=== PATIENT | female | born 1965 | race Hispanic/Latino ===

== ENCOUNTER 2017-01-03 10:50 | Emergency (ER) | payer SELFPAY ==
--- NOTE | 2017-01-03 11:14 | C.PDOC ---
History Of Present Illness 51 yo female, BIBA, with c/o left rib pain after fall and injury just prior to arrival. Patient states she was sweeping her hallway, felt dizzy, missed her step and struck her left chest on a railing. Denies head injury, LOC, headache, nausea, vomiting, SOB, new weakness, or new numbness. Patient states she is no longer dizzy and is unsure what caused the dizziness. Notes pain worsens with deep inspiration and movement. Time Seen by Provider: 01/03/17 10:54 Chief Complaint (Nursing): Dizziness/Lightheaded History Per: Patient History/Exam Limitations: no limitations Onset/Duration Of Symptoms: Hrs Current Symptoms Are (Timing): Still Present Activity At Onset Of Symptoms: Standing Seizure Or Post-ictal Symptoms: None Fall Associated With With Symptoms: Yes, Positive Injury Recent travel outside of the [place]: No Past Medical History Reviewed: Historical Data, Nursing Documentation, Vital Signs Vital Signs: Last Vital Signs Temp 97.5 F L 01/03/17 11:00 Pulse 86 01/03/17 12:44 Resp 20 01/03/17 12:44 BP 151/95 H 01/03/17 12:44 Pulse Ox 99 01/03/17 12:44 - Medical History PMH: Asthma, Pneumonia Family History: States: Unknown Family Hx - Social History Hx Tobacco Use: No Hx Alcohol Use: No Hx Substance Use: No - Immunization History Hx Tetanus Toxoid Vaccination: No Hx Influenza Vaccination: No Hx Pneumococcal Vaccination: No Review Of Systems Except As Marked, All Systems Reviewed And Found Negative. Constitutional: Negative for: Fever, Chills Cardiovascular: Negative for: Palpitations Respiratory: Negative for: Cough, Shortness of Breath, Wheezing Gastrointestinal: Negative for: Nausea, Vomiting, Abdominal Pain Musculoskeletal: Positive for: Other (left sided lower rib pain). Negative for : Neck Pain, Back Pain Skin: Negative for: Rash, Bruising Neurological: Negative for: Weakness, Numbness, Headache, Dizziness (resolved) Physical Exam - Physical Exam Appears: Non-toxic, No Acute Distress Skin: Normal Color, Warm, Dry, No Diaphoretic, No Rash Head: Atraumatic, Normacephalic Eye(s): bilateral: Normal Inspection, PERRL, EOMI Nose: Normal Oral Mucosa: Moist Neck: Normal, Normal ROM, No Midline Cervical Tenderness, No Paracervical Tenderness, Supple Chest: Symmetrical, Tenderness (left lateral lower rib area), No Ecchymosis, No Subcutaneous Emphysema, Other (no swelling) Cardiovascular: Rhythm Regular, No Murmur Respiratory: Normal Breath Sounds, No Rales, No Rhonchi, No Wheezing Gastrointestinal/Abdominal: Soft, No Tenderness, No Guarding, No Rebound Back: Normal Inspection, No Vertebral Tenderness, No Paraspinal Tenderness Extremity: Normal ROM, Capillary Refill (< 2 sec. ), No Deformity, No Swelling Neurological/Psych: Oriented x3, Normal Speech, Normal Cranial Nerves, No Cerebellar Signs, Normal Motor, Normal Sensation Gait: Steady ED Course And Treatment - Laboratory Results Result Diagrams: 01/03/17 11:39 01/03/17 11:39 Lab Interpretation: No Acute Changes O2 Sat by Pulse Oximetry: 98 (RA) Pulse Ox Interpretation: Normal Medical Decision Making Medical Decision Making: Plan: * Ribs/chest x-ray * Bloodwork * Ultram * Reassess Progress: Labs reviewed and unremarkable X-ray reviewed by me and read by radiologist showing normal chest and no rib fracture. On reevaluation, patient resting comfortably, and is in no acute distress. She remains alert and oriented, normal neuro exam. Vital signs stable. Advised follow up with PMD. Disposition Counseled Patient/Family Regarding: Diagnosis, Need For Followup, Rx Given - Disposition Disposition: HOME/ ROUTINE Disposition Time: 12:29 Condition: STABLE Additional Instructions: Your Xray was normal no rib fracture Please take pain medication as needed Follow up with your primary medical doctor or clinic in 2-5 days for further evaluation. Instructions: Rib Contusion (ED) - POA Present On Arrival: None - Clinical Impression Clinical Impression: Spell of dizziness, Contusion of rib - PA / DIRECTOR SALES / Resident Statement MD/DO has reviewed & agrees with the documentation as recorded. - Scribe Statement The provider has reviewed the documentation as recorded by the Felice Lancaster All medical record entries made by the Felice were at my direction and personally dictated by me. I have reviewed the chart and agree that the record accurately reflects my personal performance of the history, physical exam, medical decision making, and the department course for this patient. I have also personally directed, reviewed, and agree with the discharge instructions and disposition.
[2017-01-03 11:24] VITALS: TEMP 97.5
[2017-01-03 11:54] LABS: BASO # 0.1 K/uL (0.0-0.2); BASO % 0.7 % (0.0-2.0); EOS # 0.1 K/uL (0.0-0.7); EOS % 0.6 % (0.0-4.0); HEMATOCRIT 42.7 % (34.0-47.0); LYMPH % 18.2 % (20.0-40.0); MEAN CELL VOLUME 84.2 fL (81.0-99.0); MEAN CORPUSCULAR HEMOGLOBIN 27.7 pg (27.0-31.0); MEAN CORPUSCULAR HGB CONC 32.9 g/dL (33.0-37.0); MEAN PLATELET VOLUME 9.1 fL (7.2-11.7); MONO # 0.6 K/uL (0.0-0.8); MONO % 5.8 % (0.0-10.0); RED CELL DISTRIBUTION WIDTH 13.6 % (11.5-14.5); WHITE BLOOD COUNT 11.1 K/uL (4.8-10.8)
[2017-01-03 12:10] LABS: CHLORIDE 107 mmol/L (98-107); POTASSIUM 3.8 mmol/L (3.6-5.2); SODIUM 141 mmol/L (132-148)
[2017-01-03 12:12] LABS: BILIRUBIN,TOTAL 0.7 mg/dL (0.2-1.3); GFR AFRICAN-AMERICAN > 60
[2017-01-03 12:13] LABS: ALB/GLOB RATIO 1.2 (1.0-2.1); ALKALINE PHOSPHATASE 83 U/L (38-126); ALT/SGPT 24 U/L (9-52); AST/SGOT 21 U/L (14-36); BLOOD UREA NITROGEN 16 mg/dL (7-17); CALCIUM 9.2 mg/dl (8.6-10.4); CARBON DIOXIDE 24 mmol/L (22-30); GLUCOSE,RANDOM 101 mg/dL (65-105); TOTAL PROTEIN 7.2 g/dL (6.3-8.3)
[2017-01-03 12:45] VITALS: BP 151/95; PULSE 86; RESP 20
--- NOTE | 2017-01-03 14:12 | RAD ---
PROCEDURE: Radiographs of the Chest and Left Ribs. HISTORY: patient fell on side c/o pain rib area COMPARISON: 10/31/2013. TECHNIQUE: Frontal radiograph of the chest and multiple oblique radiographs of the left ribs were obtained. FINDINGS: LEFT RIBS: No fracture or focal lesion visualized. LUNGS: There is trace crowding of coalescence of left bronchovascular markings at the left lung base current inspiration slightly less than before. No infiltrative like dense consolidation suggested. PLEURA: No pneumothorax or pleural fluid. CARDIOVASCULAR: Normal sized heart. No pulmonary vascular congestion. OTHER FINDINGS: None. IMPRESSION: No left rib fracture appreciated. No pneumothorax or pleural effusion. Probable crowding of left basal bronchovascular markings and there summation with a posterior left rib. No dense consolidation appreciated
[2017-01-03 14:31] VITALS: O2SAT 98
--- NOTE | 2017-01-07 11:54 | CARD ---
APPROVED REPORT EKG Measurement Heart [id number] <Conclusion> Normal sinus rhythm Normal ECG
== END 2017-01-03 12:46 | disposition home or self-care (01) ==
LOC: C.ER 10:50
DX: R42 Dizziness and giddiness (principal); S20.212A Contusion of left front wall of thorax, initial encounter; W18.30XA Fall on same level, unspecified, initial encounter

== ENCOUNTER 2018-10-20 13:07 | Emergency (ER) | payer SELFPAY ==
[2018-10-20 14:04] VITALS: RESP 18; TEMP 98.1
[2018-10-20] MEDS ORDERED: Albuterol-Ipratrop 3 mg / 0.5 (3 ml) UD INH STA (14:55)
[2018-10-20] MEDS ORDERED: Albuterol-Ipratrop 3 mg / 0.5 (3 ml) UD ONE (15:11)
[2018-10-20 15:43] LABS: BASO % 0.4 % (0.0-2.0); EOS # 0.1 K/uL (0.0-0.7); EOS % 1.6 % (0.0-4.0); HEMOGLOBIN 14.4 g/dL (11.0-16.0); LYMPH # 2.1 K/uL (1.0-4.3); LYMPH % 30.7 % (20.0-40.0); MEAN CELL VOLUME 84.6 fL (81.0-99.0); MEAN CORPUSCULAR HEMOGLOBIN 28.3 pg (27.0-31.0); MEAN CORPUSCULAR HGB CONC 33.5 g/dL (33.0-37.0); MEAN PLATELET VOLUME 8.9 fL (7.2-11.7); MONO # 0.5 K/uL (0.0-0.8); MONO % 7.7 % (0.0-10.0); NEUT # 4.1 K/uL (1.8-7.0); NEUT % 59.6 % (50.0-75.0); NRBC % 0.1 % (0.0-2.0); RBC 5.08 Mil/uL (3.80-5.20); RED CELL DISTRIBUTION WIDTH 13.4 % (11.5-14.5); WHITE BLOOD COUNT 6.8 K/uL (4.8-10.8)
[2018-10-20 16:00] LABS: ALB/GLOB RATIO 1.3 (1.0-2.1); ALBUMIN 4.2 g/dL (3.5-5.0); ALT/SGPT 21 U/L (9-52); AST/SGOT 29 U/L (14-36); BLOOD UREA NITROGEN 14 mg/dL (7-17); CALCIUM 9.2 mg/dl (8.6-10.4); GFR NON-AFRICAN AMERICAN > 60
--- NOTE | 2018-10-20 16:10 | RAD ---
HISTORY: SOB/reactive airway COMPARISON: Chest x-ray performed 01/03/17 TECHNIQUE: Chest PA and lateral, 2 views FINDINGS: Examination limited by habitus. LUNGS: Bibasilar atelectasis. Please note that chest x-ray has limited sensitivity for the detection of pulmonary masses. PLEURA: No significant pleural effusion identified. No definite pneumothorax . CARDIOVASCULAR: The cardiomediastinal silhouette appears within normal limits of size. No atherosclerotic calcification present. OSSEOUS STRUCTURES: Degenerative changes. VISUALIZED UPPER ABDOMEN: Unremarkable. OTHER FINDINGS: None. IMPRESSION: Mild bibasilar atelectasis.
--- NOTE | 2018-10-20 16:20 | C.PDOC ---
History Of Present Illness 53-year-old female presents to the ED for evaluation of cough and congestion for one month. Patient was referred to a unload associate by her PMD without follow-up. She has history of reactive airway disease with no puffer at home. Patient denies fever, chills. Time Seen by Provider: 10/20/18 14:50 Chief Complaint (Nursing): Cough, Cold, Congestion History Per: Patient History/Exam Limitations: no limitations Onset/Duration Of Symptoms: Days Current Symptoms Are (Timing): Still Present Past Medical History Reviewed: Historical Data, Nursing Documentation, Vital Signs Vital Signs: Last Vital Signs Temp 98.1 F 10/20/18 13:59 Pulse 84 10/20/18 13:59 Resp 18 10/20/18 13:59 BP 141/92 H 10/20/18 13:59 Pulse Ox 99 10/20/18 13:59 - Medical History PMH: Asthma, Pneumonia Surgical History: No Surg Hx Family History: States: Unknown Family Hx - Social History Hx Tobacco Use: No Hx Alcohol Use: No Hx Substance Use: No - Immunization History Hx Tetanus Toxoid Vaccination: No Hx Influenza Vaccination: No Hx Pneumococcal Vaccination: No Review Of Systems Constitutional: Negative for: Fever, Chills ENT: Positive for: Nose Discharge Respiratory: Positive for: Cough Physical Exam - Physical Exam Appears: Non-toxic, No Acute Distress Skin: Normal Color, Warm, Dry Head: Atraumatic, Normacephalic Eye(s): bilateral: PERRL, EOMI, right: Other (lateral deviation (baseline)), left: Normal Inspection Oral Mucosa: Moist Neck: Supple Chest: Symmetrical, No Deformity, No Tenderness Cardiovascular: Rhythm Regular, No Murmur Respiratory: No Rales, Rhonchi (scattered), Wheezing (scattered) Extremity: Normal ROM, Capillary Refill (less than 2 seconds ) Neurological/Psych: Normal Speech, Normal Cognition ED Course And Treatment - Laboratory Results Result Diagrams: 10/20/18 15:32 10/20/18 15:32 Lab Results: Total Bilirubin 0.8 mg/dL (0.2-1.3) 10/20/18 15:32 AST 29 U/L (14-36) 10/20/18 15:32 ALT 21 U/L (9-52) 10/20/18 15:32 Alkaline Phosphatase 93 U/L (38-126) 10/20/18 15:32 Total Protein 7.4 g/dL (6.3-8.3) 10/20/18 15:32 Albumin 4.2 g/dL (3.5-5.0) 10/20/18 15:32 Globulin 3.2 gm/dL (2.2-3.9) 10/20/18 15:32 Albumin/Globulin Ratio 1.3 (1.0-2.1) 10/20/18 15:32 Lab Interpretation: Normal O2 Sat by Pulse Oximetry: 99 Pulse Ox Interpretation: Normal - Radiology CXR: Interpreted by Me CXR Interpretation: Yes: No Acute Disease - Other Rad CXR X-Ray: Viewed By Me, Read By Radiologist Interpretation: IMPRESSION: Mild bibasilar atelectasis. Progress Note: Bloodwork and CXR ordered and reviewed. Albuterol INH and Prednisone PO given. Reevaluation Time: 17:01 Reassessment Condition: Improved Medical Decision Making Medical Decision Making: reactive airway dz/viral syndrome improved with ED tx labs and CXR neg. stable for opt f/u. Disposition Doctor Will See Patient In The: Office Counseled Patient/Family Regarding: Studies Performed, Diagnosis - Disposition Disposition: HOME/ ROUTINE Disposition Time: 17:02 Condition: GOOD Forms: [facility] (Lithuanian) - Clinical Impression Clinical Impression: Influenza-like illness - Scribe Statement The provider has reviewed the documentation as recorded by the Scribe (Iqra Mulligan) Provider Attestation: All medical record entries made by the Scribe were at my direction and personally dictated by me. I have reviewed the chart and agree that the record accurately reflects my personal performance of the history, physical exam, medical decision making, and the department course for this patient. I have also personally directed, reviewed, and agree with the discharge instructions and disposition.
[2018-10-20 17:16] VITALS: BP 131/82; PULSE 81; O2SAT 96
== END 2018-10-20 17:16 | disposition home or self-care (01) ==
LOC: C.ER 13:07
DX: J11.1 Influenza due to unidentified influenza virus with other respiratory manifestations (principal)